=== PATIENT | female | born 1995 | race Caucasian/White ===

== ENCOUNTER 2017-08-28 16:31 | Emergency (ER) | payer BC ==
[2017-08-28 17:20] VITALS: BP 122/72
--- NOTE | 2017-08-28 18:20 | UC ---
Throat Pain/Nasal Yury HPI - HPI Summary HPI Summary: per director perioperative "PT FEELING FEVERISH ON AND OFF X 1 WK, RHINITIS, POST NASAL DRIP , ONSET LAST NIGHT OF SORE THROAT, STOMACH UPSET." has had strep in past and sx feel similar. denies . she is on abx. - History of Current Complaint Chief Complaint: UCGeneralIllness Stated Complaint: SORE THROAT, FEVER Time Seen by Provider: 08/28/17 17:56 Hx Last Menstrual Period: 3 WKS AGO Pain Intensity: 5 - Allergies/Home Medications Allergies/Adverse Reactions: Allergies Allergy/AdvReac Type Severity Reaction Status Date / Time Sulfa (Sulfonamide Allergy Hives Verified 08/28/17 17:12 Antibiotics) Home Medications: Home Medications Drospir/Eth Estra/Levomefol Ca [Beyaz 28 Tablet] 1 tab PO DAILY 08/28/17 [ History Confirmed 08/28/17] Ibuprofen TAB* [Advil TAB*] 400 mg PO Q6H PRN 08/28/17 [History Confirmed ] PMH/Surg Hx/FS Hx/Imm Hx Previously Healthy: Yes - Surgical History Surgical History: Yes Surgery Procedure, Year, and Place: WISDOM TEETH EXTRACTIONS. - Family History Known Family History: Positive: Hypertension - Social History Alcohol Use: Occasionally Substance Use Type: None Smoking Status (MU): Never Smoked Tobacco Review of Systems Constitutional: Fatigue Skin: Negative Eyes: Negative ENT: Sore Throat Respiratory: Negative Cardiovascular: Negative Gastrointestinal: Negative Genitourinary: Negative Motor: Negative Neurovascular: Negative Musculoskeletal: Negative Neurological: Negative Psychological: Negative Is Patient Immunocompromised?: No All Other Systems Reviewed And Are Negative: Yes Physical Exam Triage Information Reviewed: Yes Appearance: Well-Appearing, No Pain Distress, Well-Nourished Vital Signs: Initial Vital Signs Temp 98.2 F 08/28/17 17:14 Pulse 94 08/28/17 17:14 Resp 14 08/28/17 17:14 BP 122/72 08/28/17 17:14 Pulse Ox 100 08/28/17 17:14 Eye Exam: Normal ENT: Positive: Pharyngeal erythema - + b/l enlarged. no exudate. no abscess visible., TMs normal. Negative: Hoarse voice, Sinus tenderness Dental Exam: Normal Neck exam: Normal Neck: Positive: Supple, Nontender, No Lymphadenopathy Respiratory Exam: Normal Respiratory: Positive: Lungs clear, Normal breath sounds, No respiratory distress, No accessory muscle use Cardiovascular Exam: Normal Cardiovascular: Positive: RRR, No Murmur, Pulses Normal Musculoskeletal Exam: Normal Neurological Exam: Normal Psychological Exam: Normal Skin Exam: Normal Throat Pain/Nasal Course/Dx - Course Course Of Treatment: -adv back up control for rest of pack b/c abx can decrease efficacy of OCP. -amox tid x 10 days. + rapid strep - Differential Dx/Diagnosis Differential Diagnosis/HQI/PQRI: Pharyngitis, Tonsillitis, URI Provider Diagnoses: strep pharyngitis Discharge - Sign-Out/Discharge Documenting (check all that apply): Discharge - Discharge Plan Condition: Stable Disposition: HOME Prescriptions: Amoxicillin PO (*) [Amoxicillin 500 MG CAP*] 500 mg PO TID #30 cap Patient Education Materials: Strep Throat (DC) Referrals: Non Staff,Doctor [Primary Care Provider] - Additional Instructions: Make sure to take a probiotic daily while on antibiotics to help prevent a potential complication of antibiotic use called c diff. Some well known brands that can be found OTC are florastor, [employer] and [employer]ra[employer]. Make sure to complete the entire prescription unless advised otherwise by your health care provider. -Follow up if your symptoms are not better or worse within a couple of days. - Billing Disposition and Condition Condition: STABLE Disposition: HOME
== END 2017-08-28 18:33 | disposition home or self-care (01) ==
LOC: UCCORT 16:31
DX: J02.0 Streptococcal pharyngitis (principal); Z88.2 Allergy status to sulfonamides
CPT/HCPCS: 87651; 99202; G0463